=== PATIENT | female | born 1925 | race Caucasian/White ===

== ENCOUNTER 2016-11-25 09:46 | Emergency (ER) | payer MEDICARE ==
[2016-11-25] MEDS ORDERED: ALBUTEROL SULFATE/IPRATROPIUM 3 ML NEBU IH ONE ×3 (10:02→10:09)
[2016-11-25] MEDS ORDERED: METHYLPREDNISOLONE SOD SUCC/PF 40 MG/ML VIAL IV ONE (10:04)
[2016-11-25 10:17] LABS: Hematocrit 37.4 % (37.0-47.0); Hemoglobin 12.2 gm/dL (12.5-16.0); Mean Cell Volume 88.8 fl (78-100); Mean Corpuscular Hgb Conc 32.6 g/dl (32-36); Neutrophil # 6.1 K/mm3 (1.3-6.0); Neutrophil % 69.2 % (42-75.0); Platelet Count 245 K/mm3 (150-450); Red Blood Count 4.21 M/mm3 (4.2-5.4); Red Cell Distribution Width 13.2 % (11.5-14.0); White Blood Count 8.8 K/mm3 (4.0-10.5)
[2016-11-25] MEDS ORDERED: METHYLPREDNISOLONE SOD SUCC/PF 40 MG/ML VIAL ONE (10:17)
[2016-11-25 10:36] LABS: Troponin I Less than 0.017 ng/ml (0.00-0.10)
[2016-11-25 10:37] LABS: ALT 16 U/L (19-67); AST 15 U/L (0-48); Albumin * 3.5 gm/dl (3.4-5.0); Alkaline Phosphatase * 82 U/L (50-170); BUN/Creatinine Ratio 17.6 (9.0-21.6); Bilirubin, Total 0.6 mg/dL (0.0-1.1); Blood Urea Nitrogen 25 mg/dL (3-23); Ca. Corrected For Albumin 9.7 mg/dL (8.4-10.2); Calcium * 9.6 mg/dL (7.9-10.9); Carbon Dioxide 31.4 mmol/L (24-32.6); Chloride 100 mmol/L (97-106); Glucose * 99 mg/dL (70-110); Magnesium 1.9 mg/dL (1.2-2.8); Potassium 4.4 mmol/L (3.4-4.6); Sodium 139 mmol/L (132-142); Total Protein 7.1 gm/dL (6.2-8.2)
--- NOTE | 2016-11-25 11:25 | ERNOTE ---
Dyspnea - General Presenting Symptoms: shortness of breath, wheezing Time Seen by Provider: 11/25/16 10:03 Exam Limitations: no limitations - Immun/Allergies/Home Medications Immunizations: IMMUNIZATION HX Immunizations Up to Date Yes History of Influenza Vaccine Yes Hx Pneumococcal Vaccination Yes Allergies/Adverse Reactions: Allergies iodine Allergy (Severe, Verified 11/25/16 09:59) UNABLE TO BREATHE Patient notes a rash occurs with itching. iron Adverse Reaction (Mild, Verified 11/25/16 09:59) Diarrhea Penicillins Adverse Reaction (Mild, Verified 11/25/16 09:59) RASH levofloxacin Adverse Reaction (Verified 11/25/16 09:59) Nausea Home Medications: HOME MEDICATIONS Albuterol Sulfate [Proair Hfa] 2 puff IH Q4H PRN 01/03/15 [Last Taken Unknown] Acetaminophen [Tylenol] 1,000 mg PO Q8H PRN #.1 tablet 10/10/15 [Last Taken Unknown] Cholecalciferol (Vitamin D3) [Vitamin D3] 2,000 unit PO DAILY@1200 #100 capsule 10/10/15 [Last Taken Unknown] Losartan Potassium [Cozaar] 50 mg PO BID@0900,2100 #60 tablet 10/10/15 [Last Taken Unknown] Pantoprazole Sodium [Protonix] 20 mg PO BID@0700,2100 #60 tablet.dr 10/10/15 [ Last Taken Unknown] Furosemide [Lasix] 20 mg PO DAILY@1100 #30 tablet 10/17/15 [Last Taken Unknown] Isosorbide Mononitrate [Imdur] 30 mg PO DAILY #30 tab.sr.24h 10/17/15 [Last Taken Unknown] Metoprolol Tartrate [Lopressor] 100 mg PO BID #60 tablet 10/17/15 [Last Taken Unknown] Furosemide [Lasix] 40 mg PO DAILY@1100 #30 tablet 10/24/15 [Last Taken Unknown] Potassium Chloride [Klor-Con 10] 20 meq PO DAILY #30 tablet.sa 10/24/15 [Last Taken Unknown] Azithromycin [Zithromax] 250 mg PO DAILY #6 tablet 11/25/16 [Last Taken Unknown] Benzonatate [Tessalon Perle] 100 mg PO TID #20 capsule 11/25/16 [Last Taken Unknown] predniSONE [Deltasone] 20 mg PO BID #10 tablet 11/25/16 [Last Taken Unknown] - History of Present Illness Narrative: Patient has a long-standing history of COPD and appears to have had a slight exacerbation of same. She states she's had wheezing with some shortness of breath and rates the symptoms as mild to moderate in severity. Severity: mild Treatment SECURITY LEAD: by patient Frequency of episodes: Reports: occassional episodes Modifying Factors (Worsens): Reports: albuterol Associated Symptoms-Dyspnea: Reports: cough Review of Systems - Review of Systems Constitutional: Present: See HPI EYE: Present: no symptoms reported ENT: Present: no symptoms reported Respiratory: Present: See HPI Cardiology: Present: no symptoms reported Gastrointestinal/Abdominal: Present: no symptoms reported Genitourinary: Present: no symptoms reported Musculoskeletal: Present: no symptoms reported Skin: Present: no symptoms reported Neurological: Present: no symptoms reported Endocrine: Present: no symptoms reported Hematologic/Lymphatic: Present: no symptoms reported Psych: Present: no symptoms reported - Patient's Past Medical History Patient History - Medical: Osteoarthritis, Other Patient History - Cardiac/Respiratory: COPD Patient History - Cancer: Colon, Skin Patient History - Surgical Procedures: Appendectomy, Cataracts, Cholecystectomy , Colonoscopy, Total Knee Replacement, Tubal Ligation, Other Patient History - Other: Immunosuppresive Tx >3mo - Family History Mother Family History - Medical: Family History - Cardiac/Respiratory: Coronary Heart Disease Father Family History - Medical: Family History - Cardiac/Respiratory: No pertinent hx, CVA/Stroke Sister Family History - Medical: Family History - Cardiac/Respiratory: History Unknown - Social History Living Situations: assisted living Abuse History: No History of abuse Psych History: No pertinent hx Smoking Status: Never smoker Have you smoked in the past 12 months: No Do you dip or chew tobacco: No Alcohol Use: none Drug Use: none - Immunizations Immunizations Up to Date: Yes Hx Pneumococcal Vaccination: Yes History of Influenza Vaccine: Yes Physical Exam - Physical Exam General Appearance: Present: wd/wn, alert, mild distress Head Exam: Present: normal inspection, no evidence of injury Eye Exam: Normal inspection: bilateral, PERRL: bilateral Ears, Nose, Throat: Present: normal ENT inspection, H, normal pharynx Neck: Present: normal inspection, nontender Respiratory: Present: no respiratory distress, no accessory muscle use, chest nontender, crackles, wheezing Cardiovascular/Chest: Present: no murmur, normal peripheral pulses, irregularly irregular Gastrointestinal/Abdominal: Present: normal bowel sounds, nontender, nondistended, soft, no organomegaly Rectal Exam: Present: deferred Back Exam: Present: normal inspection, normal range of motion Extremity Exam: Present: normal inspection, non-tender, no edema, normal range of motion Neurological Exam: Present: alert, oriented, normal mood/affect Skin Exam: Present: normal color, warm/dry Lymphatic Exam: Present: no adenopathy ED Progress - Results and Orders Patient's Lab Results:: I have reviewed the patient's lab results. - Vital Signs Patient's Vital Signs:: I have reviewed the patient's vital signs. Vital Signs: Vital Signs 11/25/16 11/25/16 09:55 10:15 Temperature 36.5 C Pulse Rate 71 68 Respiratory 22 H 27 H Rate Blood Pressure 137/76 O2 Sat by Pulse 94 94 Oximetry - EKG EKG: atrial fibrillation - X-Ray X-Ray #1 X-Ray: chest Interpretation: Reviewed by me - Progress/Reassessment Chief Complaint: Dyspnea Progress:: Improved Plan - Plan Plan: While the patient feels better after the breathing treatment I believe she would benefit further from some antibiotics, oral steroids and cough medicine at home. Patient agrees to call her family physician and to be seen within one week. Departure Clinical Impression: COPD (chronic obstructive pulmonary disease) with acute bronchitis - Departure Disposition: Home self-care Condition: Good Instructions: Chronic Obstructive Pulmonary Disease Exacerbation, [id number] Referrals: Taniya Brito MD [Primary Care Provider] - Prescriptions: Azithromycin [Zithromax] 250 mg PO DAILY #6 tablet Benzonatate [Tessalon Perle] 100 mg PO TID #20 capsule predniSONE [Deltasone] 20 mg PO BID #10 tablet
[2016-11-25 11:50] VITALS: BP 130/67
== END 2016-11-25 11:47 | disposition home or self-care (01) ==
LOC: ER 09:46
DX: J44.0 Chronic obstructive pulmonary disease with (acute) lower respiratory infection (principal); J20.9 Acute bronchitis, unspecified; Z85.038 Personal history of other malignant neoplasm of large intestine; Z85.828 Personal history of other malignant neoplasm of skin